=== PATIENT | female | born 1975 | race Caucasian/White ===

== ENCOUNTER 2017-10-06 18:27 | Observation (INO) | payer OTHER ==
[~2017-10-06] VITALS: Ht 160 cm; Wt 90.7 kg
[~2017-10-06 18:27] MED LIST: ALPR.25 MT; Atarax10 MG PO; BENTYL10 MG PO; BUSP5 PO; CHLO25 PO; CIPR500 PO; CODACE30 PO; Desyrel50 MG; FLUO10 PO; HYDACE5 PO; HYDR1TAB94 PO; IBUP600 PO; IBUP800 PO; Keflex500 MG PO; METPRE4DP PO; NAPR500 PO; NITR100CA PO; OMEP20ER PO; ONDA4 PO; ONDA4ODT MM; ONDA8 PO; OXYACE5T PO; PARO20 PO; PHENA100 PO; PROM25 PO; RANI150 PO; TRAM50 PO; TRAZ100 PO; TRAZ50 PO; Zofran Odt4 MG SL; Zofran Odt8 MG SL; [UNRECOGNIZED DRUG - OTHER]; [UNRECOGNIZED DRUG - REMARK]
[2017-10-06 19:46] LABS: BASOPHILS ABSOLUTE AUTO 0.04 K/mm3 (0.00-0.23); BASOPHILS PERCENT AUTO 1 % (0-2); EOSINOPHILS ABSOLUTE AUTO 0.13 K/mm3 (0.00-0.68); EOSINOPHILS PERCENT AUTO 2 % (0-6); Hematocrit 41.9 % (33.0-51.0); Hemoglobin 14.3 g/dL (11.5-16.0); IMMATURE GRAN ABSOLUTE AUTO 0.02 K/mm3 (0.00-0.10); IMMATURE GRAN PERCENT AUTO 0 % (0-1); LYMPHOCYTES ABSOLUTE AUTO 1.92 K/mm3 (0.84-5.20); LYMPHOCYTES PERCENT AUTO 25 % (21-46); MONOCYTES ABSOLUTE AUTO 0.51 K/mm3 (0.16-1.47); MONOCYTES PERCENT AUTO 7 % (4-13); Mean Corpuscular HGB 34.2 pg (26.0-34.0); Mean Corpuscular HGB Conc 34.1 g/dL (31.5-36.5); Mean Corpuscular Volume 100 fL (80-100); Mean Platelet Volume 9.4 fL (9.1-12.4); NEUTROPHILS PERCENT AUTO 66 % (41-73); Platelet Count 311 K/mm3 (150-400); RDW Standard Deviation 51.2 fL (35.1-46.3); Red Blood Cell Count 4.18 M/mm3 (3.80-5.20); White Blood Cell Count 7.72 K/mm3 (4.00-11.30)
[2017-10-06 20:08] LABS: Alanine Aminotransfer (ALT/SGP 72 U/L (12-78); Albumin, Blood 3.7 g/dL (3.4-5.0); Albumin/Globulin Ratio 0.8 (0.8-1.8); Alk Phos 123 U/L (50-136); Anion Gap 13 mmol/L (6-16); Aspartate Aminotrans (AST/SGOT 73 U/L (12-37); Bilirubin, Total 0.2 mg/dL (0.1-1.0); Blood Urea Nitrogen 6 mg/dL (8-24); Bun/Creatinine Ratio 9.2 (12.0-20.0); CO2, Blood 18 mmol/L (21-32); Calcium, Blood 8.2 mg/dL (8.5-10.1); Chloride, Blood 116 mmol/L (98-108); Creatinine, Blood 0.65 mg/dL (0.40-1.00); Globulin, Blood 4.4 g/dL (2.2-4.0); Glomerular Filtration Rate >60 (60-); Glucose, Blood 89 mg/dL (70-99); Potassium, Blood 3.7 mmol/L (3.5-5.5); Sodium, Blood 147 mmol/L (136-145); Total Protein, Blood 8.1 g/dL (6.4-8.2)
[2017-10-06 20:12] LABS: Thyroid Stimulating Hormone 0.932 uIU/mL (0.360-4.800)
[2017-10-06 20:21] LABS: Ethanol (Alcohol), Blood, Med 406 mg/dL
[2017-10-06 20:22] LABS: Acetaminophen, Random <2.0 ug/mL (10.0-30.0)
== END 2017-10-07 15:57 | disposition home or self-care (01) ==
LOC: ER 18:27 → EOR 18:28
PROVIDERS: Emergency Medicine
DX: F10.129 Alcohol abuse with intoxication, unspecified (principal); R45.851 Suicidal ideations; F17.200 Nicotine dependence, unspecified, uncomplicated; Z88.5 Allergy status to narcotic agent; Z88.8 Allergy status to other drugs, medicaments and biological substances; Y90.8 Blood alcohol level of 240 mg/100 ml or more
CPT/HCPCS: 80053; 84443; 85025; 96372; 99285; G0378; G0480; J1200; J1630; J2060

== ENCOUNTER 2017-10-12 18:33 | Emergency (ER) | payer OTHER ==
[~2017-10-12] VITALS: Ht 160 cm; Wt 90.7 kg
== END 2017-10-12 18:57 | disposition home or self-care (01) ==
LOC: ER 18:33
DX: F10.229 Alcohol dependence with intoxication, unspecified (principal); F41.9 Anxiety disorder, unspecified; F17.210 Nicotine dependence, cigarettes, uncomplicated
CPT/HCPCS: 99283

== ENCOUNTER 2017-10-13 14:50 | Emergency (ER) | payer OTHER ==
[~2017-10-13] VITALS: Ht 162.6 cm; Wt 90.7 kg
== END 2017-10-13 15:17 | disposition home or self-care (01) ==
LOC: ER 14:50
DX: F10.229 Alcohol dependence with intoxication, unspecified (principal); F41.9 Anxiety disorder, unspecified; F17.210 Nicotine dependence, cigarettes, uncomplicated
CPT/HCPCS: 99283

== ENCOUNTER 2019-02-22 15:16 | Emergency (ER) | payer OTHER ==
[~2019-02-22] VITALS: Ht 160 cm; Wt 87.1 kg
[2019-02-22] MEDS ORDERED: CLON.1 PO (15:50)
[2019-02-22] MEDS ORDERED: GABA100 PO (15:51)
[2019-02-22 15:52] LABS: BASOPHILS ABSOLUTE AUTO 0.02 K/mm3 (0.00-0.23); BASOPHILS PERCENT AUTO 0 % (0-2); EOSINOPHILS ABSOLUTE AUTO 0.32 K/mm3 (0.00-0.68); EOSINOPHILS PERCENT AUTO 5 % (0-6); Hematocrit 41.2 % (33.0-51.0); Hemoglobin 13.8 g/dL (11.5-16.0); IMMATURE GRAN ABSOLUTE AUTO 0.02 K/mm3 (0.00-0.10); IMMATURE GRAN PERCENT AUTO 0 % (0-1); LYMPHOCYTES ABSOLUTE AUTO 1.38 K/mm3 (0.84-5.20); LYMPHOCYTES PERCENT AUTO 20 % (21-46); MONOCYTES ABSOLUTE AUTO 0.36 K/mm3 (0.16-1.47); MONOCYTES PERCENT AUTO 5 % (4-13); Mean Corpuscular HGB 35.2 pg (26.0-34.0); Mean Corpuscular HGB Conc 33.5 g/dL (31.5-36.5); Mean Corpuscular Volume 105 fL (80-100); Mean Platelet Volume 9.6 fL (9.1-12.4); NEUTROPHILS ABSOLUTE AUTO 4.75 K/mm3 (1.96-9.15); NEUTROPHILS PERCENT AUTO 69 % (41-73); Platelet Count 258 K/mm3 (150-400); RDW Coefficient Variation 13.5 % (11.7-14.2); Red Blood Cell Count 3.92 M/mm3 (3.80-5.20); White Blood Cell Count 6.85 K/mm3 (4.00-11.30)
[2019-02-22 16:12] LABS: Source, Urine Clean Catch
[2019-02-22 16:19] LABS: Blood, Urine 1+ (Neg); Glucose Qualitative, Urine Neg (Neg); Ketones, Urine Neg (Neg); Leukocyte Esterase, Urine Neg (Neg); Nitrite, Urine Pos (Neg); Protein, Urine 2+ (Neg); Specific Gravity, Urine 1.015 (1.003-1.022); Urobilinogen, Urine 4+ (Normal)
[2019-02-22 16:29] LABS: Alanine Aminotransfer (ALT/SGP 23 U/L (12-78); Albumin, Blood 3.1 g/dL (3.4-5.0); Albumin/Globulin Ratio 0.7 (0.8-1.8); Alk Phos 93 U/L (50-136); Anion Gap 6 mmol/L (6-16); Aspartate Aminotrans (AST/SGOT 9 U/L (12-37); Bilirubin, Total 0.6 mg/dL (0.1-1.0); Blood Urea Nitrogen 11 mg/dL (8-24); Bun/Creatinine Ratio 17.5 (12.0-20.0); CO2, Blood 26 mmol/L (21-32); Calcium, Blood 8.6 mg/dL (8.5-10.1); Chloride, Blood 109 mmol/L (98-108); Creatinine, Blood 0.63 mg/dL (0.40-1.00); Globulin, Blood 4.3 g/dL (2.2-4.0); Glomerular Filtration Rate >60 (60-); Glucose, Blood 145 mg/dL (70-99); Potassium, Blood 3.8 mmol/L (3.5-5.5); Sodium, Blood 141 mmol/L (136-145); Total Protein, Blood 7.4 g/dL (6.4-8.2)
[2019-02-22 16:30] LABS: Bilirubin, Urine 3+ (Neg)
[2019-02-22 16:31] LABS: Appearance, Urine Cloudy (Clear); Color, Urine Orange (P-Yellow)
[2019-02-22 16:33] LABS: Bacteria Many /hpf; Squamous Epithelial Cells Many /hpf (Few)
[2019-02-22] MEDS ORDERED: CEPH500 PO (17:03)
[2019-02-22] MEDS ORDERED: Pyridium200 MG PO (17:03)
== END 2019-02-22 18:00 | disposition home or self-care (01) ==
LOC: ER 15:16
PROVIDERS: Physician Assistant
DX: N30.00 Acute cystitis without hematuria (principal); Z88.8 Allergy status to other drugs, medicaments and biological substances; Z88.5 Allergy status to narcotic agent; Z88.6 Allergy status to analgesic agent; Z79.899 Other long term (current) drug therapy; F17.210 Nicotine dependence, cigarettes, uncomplicated
CPT/HCPCS: 36415; 80053; 81001; 83690; 84703; 85025; 87086; 96374; 99283-25; J1885

== ENCOUNTER 2019-05-31 20:29 | Emergency (ER) | payer OTHER ==
[~2019-05-31] VITALS: Ht 160 cm; Wt 88.0 kg
[~2019-05-31 20:29] MED LIST changes: +CEPH500 PO; +CLON.1 PO; +GABA100 PO; +Pyridium200 MG PO
== END 2019-05-31 21:32 | disposition home or self-care (01) ==
LOC: ER 20:29
DX: T24.212A Burn of second degree of left thigh, initial encounter (principal); T31.0 Burns involving less than 10% of body surface; F17.210 Nicotine dependence, cigarettes, uncomplicated; Z88.6 Allergy status to analgesic agent; Z88.8 Allergy status to other drugs, medicaments and biological substances; Z79.899 Other long term (current) drug therapy; X16.XXXA Contact with hot heating appliances, radiators and pipes, initial encounter
CPT/HCPCS: 16020; 99283-25; A9270-GY

== ENCOUNTER 2020-11-27 22:15 | Emergency (ER) | payer OTHER ==
[~2020-11-27] VITALS: Ht 160 cm; Wt 99.8 kg
== END 2020-11-28 00:30 | disposition home or self-care (01) ==
LOC: ER 22:15
DX: S93.401A Sprain of unspecified ligament of right ankle, initial encounter (principal); F17.210 Nicotine dependence, cigarettes, uncomplicated; Z88.2 Allergy status to sulfonamides; Z88.5 Allergy status to narcotic agent; Z88.6 Allergy status to analgesic agent; Z79.899 Other long term (current) drug therapy; W10.9XXA Fall (on) (from) unspecified stairs and steps, initial encounter
CPT/HCPCS: 29515; 73610; 99283-25; L1906

== ENCOUNTER → 2022-09-18 | Outpatient (CLI) | payer OTHER ==
[2022-09-20 04:06] LABS: CHLAMYDIA TRACHOMATIS, NAA Negative (Negative)
== END | disposition home or self-care (01) ==
LOC: LAB SHORT 16:56
PROVIDERS: Nurse Practitioner Family
DX: Z11.3 Encounter for screening for infections with a predominantly sexual mode of transmission (principal)
CPT/HCPCS: 87491; 87591

== ENCOUNTER → 2023-03-24 | Outpatient (CLI) | payer OTHER ==
[2023-03-24 17:25] LABS: BASOPHILS ABSOLUTE AUTO 0.03 K/mm3 (0.00-0.23); BASOPHILS PERCENT AUTO 0 % (0-2); EOSINOPHILS ABSOLUTE AUTO 0.11 K/mm3 (0.00-0.68); EOSINOPHILS PERCENT AUTO 1 % (0-6); Hematocrit 42.2 % (33.0-51.0); Hemoglobin 15.3 g/dL (11.5-16.0); IMMATURE GRAN ABSOLUTE AUTO 0.03 K/mm3 (0.00-0.10); IMMATURE GRAN PERCENT AUTO 0 % (0-1); LYMPHOCYTES ABSOLUTE AUTO 1.58 K/mm3 (0.84-5.20); LYMPHOCYTES PERCENT AUTO 18 % (21-46); MONOCYTES ABSOLUTE AUTO 0.57 K/mm3 (0.16-1.47); MONOCYTES PERCENT AUTO 7 % (4-13); Mean Corpuscular HGB 39.2 pg (26.0-34.0); Mean Corpuscular HGB Conc 36.3 g/dL (31.5-36.5); Mean Corpuscular Volume 108 fL (80-100); Mean Platelet Volume 10.1 fL (9.1-12.4); NEUTROPHILS ABSOLUTE AUTO 6.47 K/mm3 (1.96-9.15); NEUTROPHILS PERCENT AUTO 74 % (41-73); Platelet Count 215 K/mm3 (150-400); RDW Coefficient Variation 13.3 % (11.7-14.2); RDW Standard Deviation 53.3 fL (35.1-46.3); White Blood Cell Count 8.79 K/mm3 (4.00-11.30)
[2023-03-24 17:39] LABS: Albumin, Blood 3.6 g/dL (3.4-5.0); Albumin/Globulin Ratio 0.7 (0.8-1.8); Bilirubin, Total 1.4 mg/dL (0.1-1.0); Bun/Creatinine Ratio 24.6 (12.0-20.0); Calcium, Blood 9.6 mg/dL (8.5-10.1); Creatinine, Blood 1.34 mg/dL (0.40-1.00); Globulin, Blood 5.3 g/dL (2.2-4.0); Potassium, Blood 2.9 mmol/L (3.5-5.5); Total Protein, Blood 8.9 g/dL (6.4-8.2)
== END ==
LOC: LAB SHORT 15:00 → LAB 15:00
PROVIDERS: Family Medicine
DX: N12 Tubulo-interstitial nephritis, not specified as acute or chronic (principal)
CPT/HCPCS: 80053; 85025; 87077; 87086; 87186

== ENCOUNTER → 2023-06-23 | Outpatient (CLI) | payer OTHER ==
[2023-06-25 17:36] LABS: APTIMA MEDIA TYPE Urine; C. TRACHOMATIS BY TMA Negative (Negative); N. GONORRHOEAE BY TMA Negative (Negative); SPECIMEN SOURCE Urine
== END ==
LOC: LAB SHORT 13:53 → LAB 13:53
PROVIDERS: Advanced Practice Midwife
DX: Z11.3 Encounter for screening for infections with a predominantly sexual mode of transmission (principal)
CPT/HCPCS: 87491; 87591

== ENCOUNTER 2024-02-05 23:06 | Inpatient (IN) | payer OTHER ==
[~2024-02-05] VITALS: Ht 160 cm; Wt 83.6 kg
[~2024-02-05 23:06] MED LIST changes: -Atarax10 MG PO; -GABA100 PO; +GABA300 PO; +HYDPAM25 PO
[2024-02-05 23:45] LABS: BASOPHILS ABSOLUTE AUTO 0.04 K/mm3 (0.00-0.23); BASOPHILS PERCENT AUTO 0 % (0-2); EOSINOPHILS ABSOLUTE AUTO 0.01 K/mm3 (0.00-0.68); EOSINOPHILS PERCENT AUTO 0 % (0-6); Hematocrit 36.2 % (33.0-51.0); Hemoglobin 12.8 g/dL (11.5-16.0); IMMATURE GRAN ABSOLUTE AUTO 0.03 K/mm3 (0.00-0.10); IMMATURE GRAN PERCENT AUTO 0 % (0-1); LYMPHOCYTES ABSOLUTE AUTO 1.12 K/mm3 (0.84-5.20); LYMPHOCYTES PERCENT AUTO 13 % (21-46); MONOCYTES ABSOLUTE AUTO 0.67 K/mm3 (0.16-1.47); MONOCYTES PERCENT AUTO 8 % (4-13); Mean Corpuscular HGB 35.6 pg (26.0-34.0); Mean Corpuscular HGB Conc 35.4 g/dL (31.5-36.5); Mean Corpuscular Volume 101 fL (80-100); Mean Platelet Volume 9.7 fL (9.1-12.4); NEUTROPHILS ABSOLUTE AUTO 7.06 K/mm3 (1.96-9.15); NEUTROPHILS PERCENT AUTO 79 % (41-73); Platelet Count 293 K/mm3 (150-400); RDW Coefficient Variation 14.7 % (11.7-14.2); RDW Standard Deviation 54.4 fL (35.1-46.3); White Blood Cell Count 8.93 K/mm3 (4.00-11.30)
[2024-02-05] MEDS ORDERED: Thiamine HCl 100 MG in NS 50 ML IV ONE (23:45)
[2024-02-05] MEDS ORDERED: NS 1,000 ML IV SCH (23:50)
[2024-02-05] MEDS ORDERED: LORazepam 2 MG/ML 1ML Injection IV ONE (23:50)
[2024-02-05] MEDS ORDERED: Ondansetron HCl 2 MG / ML 2ML Vial IV ONE (23:50)
[2024-02-06 00:05] LABS: Ethanol (Alcohol), Blood, Med <3 mg/dL
[2024-02-06 00:10] LABS: Alanine Aminotransfer (ALT/SGP 113 U/L (12-78); Albumin, Blood 3.1 g/dL (3.4-5.0); Albumin/Globulin Ratio 0.7 (0.8-1.8); Alk Phos 237 U/L (50-136); Anion Gap 21 mmol/L (3-11); Aspartate Aminotrans (AST/SGOT 240 U/L (12-37); Bilirubin, Total 1.5 mg/dL (0.1-1.0); Blood Urea Nitrogen 9 mg/dL (8-24); Bun/Creatinine Ratio 11.5 (12.0-20.0); CO2, Blood 20 mmol/L (21-32); Calcium, Blood 8.8 mg/dL (8.5-10.1); Chloride, Blood 102 mmol/L (98-108); Creatinine, Blood 0.78 mg/dL (0.40-1.00); Globulin, Blood 4.5 g/dL (2.2-4.0); Glomerular Filtration Rate 94 (60-); Glucose, Blood 135 mg/dL (70-99); Magnesium, Blood 0.7 mg/dL (1.6-2.4); Phosphorus, Blood 3.1 mg/dL (2.5-4.9); Potassium, Blood 3.9 mmol/L (3.5-5.5); Sodium, Blood 139 mmol/L (136-145); Total Protein, Blood 7.6 g/dL (6.4-8.2)
[2024-02-06] MEDS ORDERED: Magnesium Sulf 2 GM/Water 50ML 50 ML IV ONE ×2 (00:15→02:30)
[2024-02-06] MEDS ORDERED: PROZAC2010 PO (03:24)
[2024-02-06] MEDS ORDERED: OMEP20ER PO (03:24)
[2024-02-06] MEDS ORDERED: Cyclobenzaprine5 MG PO (03:24)
[2024-02-06] MEDS ORDERED: EUTHYROX25 MC1 PO (03:25)
[2024-02-06] MEDS ORDERED: Naltrexone HCl50 MG PO (03:32)
[2024-02-06] MEDS ORDERED: LORazepam 1 MG Tab PO PRN (03:50)
[2024-02-06] MEDS ORDERED: LORazepam 2 MG/ML 1ML Injection IV PRN ×2 (03:50→03:55)
[2024-02-06] MEDS ORDERED: ChlordiazePOXIDE 25 MG Cap PO PRN ×2 (03:50→03:55)
[2024-02-06] MEDS ORDERED: IBUP800 PO (04:59)
[2024-02-06] MEDS ORDERED: ANORO ELLIPTA1 EAC1 INH (05:10)
[2024-02-06 05:12] VITALS: BP 130/117
[2024-02-06] MEDS ORDERED: HYDROCHLOROTH12.5 MG PO (05:12)
[2024-02-06] MEDS ORDERED: ONDA8 PO (05:13)
[2024-02-06] MEDS ORDERED: Ondansetron HCl 2 MG / ML 2ML Vial IV PRN (05:40)
[2024-02-06] MEDS ORDERED: Ipratropium/Albuterol SulF 2.5-0.5MG/3 ML Amp INH SCH (05:45)
[2024-02-06] MEDS ORDERED: Cyclobenzaprine HCl 10 MG Tab PO PRN (05:45)
[2024-02-06] MEDS ORDERED: HydrOXYzine Pamoate 25 MG Cap PO PRN (05:45)
[2024-02-06] MEDS ORDERED: Gabapentin 300 MG Cap PO SCH (06:00)
[2024-02-06] MEDS ORDERED: Ipratropium/Albuterol SulF 2.5-0.5MG/3 ML Amp INH PRN (06:00)
[2024-02-06 07:15] LABS: Albumin, Blood 2.7 g/dL (3.4-5.0); Albumin/Globulin Ratio 0.7 (0.8-1.8); Bilirubin, Total 1.4 mg/dL (0.1-1.0); Bun/Creatinine Ratio 12.2 (12.0-20.0); Calcium, Blood 7.8 mg/dL (8.5-10.1); Creatinine, Blood 0.74 mg/dL (0.40-1.00); Globulin, Blood 3.9 g/dL (2.2-4.0); Magnesium, Blood 2.4 mg/dL (1.6-2.4); Potassium, Blood 3.1 mmol/L (3.5-5.5); Total Protein, Blood 6.6 g/dL (6.4-8.2)
[2024-02-06] MEDS ORDERED: Omeprazole 20 MG CapCR PO SCH (07:30)
[2024-02-06 07:33] VITALS: BP 124/91
[2024-02-06] MEDS ORDERED: NS 250 ML IV PRN (07:35)
[2024-02-06] MEDS ORDERED: Potassium Chloride 20 MEQ TabCR PO SCH (08:00)
--- NOTE | 2024-02-06 08:45 | NUR ---
SHIFT SUMMARY: MARTA IS A&OX4. VSS, NO ACUTE EVENTS SINCE ADMISSION, MAINTAINING SATS ORA. PT WAS MEDICATED PER MAR BASE ON CIWA SCORE. PT WAS HESITANT TO TAKE THE LIBRIUM AT FIRST, STATING THAT SHE HAS HAD SOME DIFFICULTY TOLERATING MEDICATIONS IN THE PAST. PT DID TOLERATE THE MEDICATIONS WITHOUT DIFFICULTY. PT REPORTS STRESS INCONTINENCE WHEN SHE COUGHS, MADONNA UNDERWEAR AND PAD PROVIDED. IV TO LEFT AC PATENT. SHE IS A STANDBY ASSIST TO THE BATHROOM D/T WEAKNESS AND MEDICATIONS. SHE REPORTS SHE HAS NOT EATEN FOR FOUR DAYS AND THAT THE LONGEST SHE HAS GONE WITHOUT EATING WAS TEN DAYS, WHICH LEFT HER FEELING FATIGUED AND LETHARGIC. SHE DENIES ANY DIFFICULTY WITH ELIMINATION. SHE STATES THAT SHE HAS BEEN NAUSEATED AND VOMITING FOR QUITE A WHILE AND HAS LOST APPROXIMATELY TWENTY POUNDS. SHE IS LYING IN BED WITH THE CALL LIGHT IN REACH. REPORT WAS GIVEN TO DAY SHIFT RN.
[2024-02-06] MEDS ORDERED: FLUoxetine HCL 20 MG CAP PO SCH (09:00)
[2024-02-06] MEDS ORDERED: HydroCHLOROthiazide 25 mg Tab PO SCH (09:00)
[2024-02-06] MEDS ORDERED: Folic Acid 1 MG in NS 50 ML IV SCH ×2 (09:00)
[2024-02-06] MEDS ORDERED: Thiamine HCl 100 MG in NS 50 ML IV SCH (09:00)
[2024-02-06] MEDS ORDERED: Enoxaparin 40 MG/0.4 ML SYR SC SCH (09:00)
[2024-02-06 15:03] VITALS: BP 125/89
[2024-02-06] MEDS ORDERED: NS 1,000 ML IV SCH (15:35)
--- NOTE | 2024-02-06 17:00 | NUR ---
SHIFT SUMMARY PT HAS BEEN PLEASENT TODAY. MOST RECENT CIWA SCORE WAS 6. HAS BEEN MEDICATED PER EMAR THROUGHOUT SHIFT FOR SX. REMAINS A&OX4. VSS. COMPLAINING OF MILD NEAUSIA THIS AM BUT RESOLVING THIS AFTERNOON. PT DESCRIBES A "TINGLING FEELING" ON HER LOWER LEGS AND IN HER HAIR LINE. PT HAS BEEN SLEEPY TODAY, EASILY AROUSED BY VOICE. PT HAD DARK BROWN URINE, NOTIFIED DR ABOUT THIS FINDING AND WAS PRESCRIBED NS TO HELP HYDRATE HER. BLADDER SCAN READ 0 AFTER VOIDING. WATER AT BEDSIDE, EDUCATED PT ABOUT THE NEED TO DRINK WATER.
[2024-02-06] MEDS ORDERED: Magnesium Oxide 400 MG Tab PO SCH (21:00)
[2024-02-06] MEDS ORDERED: CloNIDine 0.1 MG Tab PO SCH (21:00)
[2024-02-07 03:05] VITALS: BP 109/75
[2024-02-07 05:15] LABS: Albumin, Blood 2.3 g/dL (3.4-5.0); Albumin/Globulin Ratio 0.7 (0.8-1.8); Bilirubin, Total 1.2 mg/dL (0.1-1.0); Bun/Creatinine Ratio 10.4 (12.0-20.0); Calcium, Blood 7.4 mg/dL (8.5-10.1); Creatinine, Blood 0.77 mg/dL (0.40-1.00); Globulin, Blood 3.5 g/dL (2.2-4.0); Potassium, Blood 3.6 mmol/L (3.5-5.5); Total Protein, Blood 5.8 g/dL (6.4-8.2)
--- NOTE | 2024-02-07 05:37 | NUR ---
SHIFT SUMMARY NOC PT A/O X 4. PLEASANT AND COOPERATIVE WITH CARE. VSS. CIWA 4 AND 3. PT HAVING TREMORS AND MILD ANXIETY ABOUT SPINAL MRI SCHEDULED FOR OUTPATIENT @ 0700 TODAY THAT PT WILL HAVE TO CANCEL BECAUSE THEY WERE NOT EXPECTING TO BE ADMITTED TO HOSPITAL. PT REPORTS THAT THIS IS IMPORTANT TO THEM DUE TO INCREASING PAIN. PT STATES THAT IF POSSIBLE THEY WOULD LIKE TO HAVE MRI PERFORMED WHILE THEY ARE ALREADY IN HOSPITAL. INFUSIN OF NS @ 100 ML/HR RUNNING. ON TELE SINUS RHYTHM IN 70'S. PT PO INTAKE HAS BEEN BETTER AND PT HAS VOIDED X 3 SO FAR DURING SHIFT. PT CURRENTLY RESTING WITH BED IN LOWEST POSITION, AND CALL LIGHT WITHIN REACH.
[2024-02-07 07:29] VITALS: BP 120/85
[2024-02-07 14:09] VITALS: BP 106/76
--- NOTE | 2024-02-07 17:44 | NUR ---
SHIFT SUMMARY: PT A/O X4. PLEASANT AND COOPERATIVE WITH CARE. ONE CIWA COMPLETED THIS SHIFT WITH A SCORE OF 3. NO ATIVAN OR LIBRIUM NEEDED THIS SHIFT. PT C/O LOWER BACK PAIN ONCE. PRN FLEXERIL PROVIDED. PT SCHEDULED FOR OUTPT CT OF LUMBAR SPINE AT [address] NOGUERA AND ORDERED IMAGING FOR INPATIENT. CT COMPLETED THIS AM. NS INFUSING @100/HR. CONT BIOX IN PLACE. TELE IN PLACE RUNNING SINUS RHYHTM IN 'S. CALL LIGHT IN REACH. BED IN LOWEST POSITION.
[2024-02-08 02:32] VITALS: BP 105/64
[2024-02-08 05:53] LABS: BASOPHILS ABSOLUTE AUTO 0.01 K/mm3 (0.00-0.23); BASOPHILS PERCENT AUTO 0 % (0-2); EOSINOPHILS ABSOLUTE AUTO 0.14 K/mm3 (0.00-0.68); EOSINOPHILS PERCENT AUTO 3 % (0-6); Hematocrit 28.5 % (33.0-51.0); Hemoglobin 9.7 g/dL (11.5-16.0); IMMATURE GRAN ABSOLUTE AUTO 0.01 K/mm3 (0.00-0.10); IMMATURE GRAN PERCENT AUTO 0 % (0-1); LYMPHOCYTES ABSOLUTE AUTO 1.01 K/mm3 (0.84-5.20); LYMPHOCYTES PERCENT AUTO 22 % (21-46); MONOCYTES PERCENT AUTO 9 % (4-13); Mean Corpuscular HGB 36.2 pg (26.0-34.0); Mean Platelet Volume 9.5 fL (9.1-12.4); NEUTROPHILS ABSOLUTE AUTO 2.96 K/mm3 (1.96-9.15); NEUTROPHILS PERCENT AUTO 65 % (41-73); Platelet Count 142 K/mm3 (150-400); RDW Standard Deviation 58.3 fL (35.1-46.3); Red Blood Cell Count 2.68 M/mm3 (3.80-5.20); White Blood Cell Count 4.53 K/mm3 (4.00-11.30)
--- NOTE | 2024-02-08 05:57 | NUR ---
SHIFT SUMMARY: Pt is admitted for ETOH withdrawal and is a full code. Is alert and able to make needs known. Stated that she did have some cramp/ spasm type pain that was treated with PRN muscle relaxers. Tell reports sinus in the 80s.
[2024-02-08 06:01] LABS: Mean Corpuscular Volume 106 fL (80-100)
[2024-02-08 06:47] LABS: Albumin/Globulin Ratio 0.7 (0.8-1.8); Bun/Creatinine Ratio 9.4 (12.0-20.0); Calcium, Blood 7.5 mg/dL (8.5-10.1); Creatinine, Blood 0.75 mg/dL (0.40-1.00); Potassium, Blood 3.5 mmol/L (3.5-5.5)
[2024-02-08 07:46] VITALS: BP 102/73
[2024-02-08] MEDS ORDERED: MULVITA PO (08:31)
--- NOTE | 2024-02-08 10:56 | NUR ---
DISCHARGE: PT D/C @1050 VIA WHEELCHAIR WITH NIECE. IV REMOVED W/O COMPLICATIONS. TELE SENT BACK. ONLY NEW MEDICATION WAS MULTIPVITAMIN. PT STATES SHE IS WITHOUT A PHONE RIGHT NOW. PT STATES SHE WILL CALL CLINIC FOR FOLLOW-UP APPOINTMENT. NO QUESTIONS AT TIME OF D/C.
== END 2024-02-08 10:51 | disposition home or self-care (01) | DRG 897 ==
LOC: ER 23:06 → MEDS 02-06 03:46
PROVIDERS: Emergency Medicine; Internal Medicine; ADMIT Family Medicine
PROC: HZ2ZZZZ Detoxification Services for Substance Abuse Treatment (ICD-10-PCS; principal; 2024-02-06)
DX: F10.239 Alcohol dependence with withdrawal, unspecified (principal); E83.42 Hypomagnesemia; E87.6 Hypokalemia; K70.10 Alcoholic hepatitis without ascites; F32.A Depression, unspecified; F41.9 Anxiety disorder, unspecified; Z71.51 Drug abuse counseling and surveillance of drug abuser; Z90.49 Acquired absence of other specified parts of digestive tract; Y90.0 Blood alcohol level of less than 20 mg/100 ml; F17.210 Nicotine dependence, cigarettes, uncomplicated; Z98.890 Other specified postprocedural states; Z88.6 Allergy status to analgesic agent; Z88.8 Allergy status to other drugs, medicaments and biological substances; Z79.899 Other long term (current) drug therapy; Z79.890 Hormone replacement therapy; Z87.440 Personal history of urinary (tract) infections
CPT/HCPCS: 36415; 72131; 80053; 80320; 82607; 82746; 83690; 83735; 84100; 85025; 94760; 94762; 96361; 96365; 96366; 96367; 96368; 96375; 99285; A9270; J1650; J2060; J2405; J3411; J3475; J7030; J7050; Q0177

== ENCOUNTER → 2024-03-21 | Outpatient (CLI) | payer OTHER ==
[~2024-03-21] MED LIST changes: +ANORO ELLIPTA1 EAC1 INH; +Cyclobenzaprine5 MG PO; +EUTHYROX25 MC1 PO; +HYDROCHLOROTH12.5 MG PO; +MULVITA PO; +Naltrexone HCl50 MG PO; +PROZAC2010 PO
[2024-03-21 16:30] LABS: BASOPHILS ABSOLUTE AUTO 0.03 K/mm3 (0.00-0.23); BASOPHILS PERCENT AUTO 1 % (0-2); EOSINOPHILS ABSOLUTE AUTO 0.38 K/mm3 (0.00-0.68); EOSINOPHILS PERCENT AUTO 7 % (0-6); Hematocrit 33.4 % (33.0-51.0); Hemoglobin 11.1 g/dL (11.5-16.0); IMMATURE GRAN ABSOLUTE AUTO 0.01 K/mm3 (0.00-0.10); IMMATURE GRAN PERCENT AUTO 0 % (0-1); LYMPHOCYTES ABSOLUTE AUTO 1.69 K/mm3 (0.84-5.20); LYMPHOCYTES PERCENT AUTO 29 % (21-46); MONOCYTES ABSOLUTE AUTO 0.37 K/mm3 (0.16-1.47); MONOCYTES PERCENT AUTO 6 % (4-13); Mean Corpuscular HGB 32.9 pg (26.0-34.0); Mean Corpuscular HGB Conc 33.2 g/dL (31.5-36.5); Mean Corpuscular Volume 99 fL (80-100); Mean Platelet Volume 9.5 fL (9.1-12.4); NEUTROPHILS PERCENT AUTO 57 % (41-73); Platelet Count 313 K/mm3 (150-400); RDW Coefficient Variation 13.2 % (11.7-14.2); RDW Standard Deviation 48.5 fL (35.1-46.3); Red Blood Cell Count 3.37 M/mm3 (3.80-5.20); White Blood Cell Count 5.78 K/mm3 (4.00-11.30)
[2024-03-21 16:36] LABS: Albumin, Blood 3.1 g/dL (3.4-5.0); Albumin/Globulin Ratio 0.8 (0.8-1.8); Bilirubin, Total 0.4 mg/dL (0.1-1.0); Bun/Creatinine Ratio 15.6 (12.0-20.0); Calcium, Blood 9.1 mg/dL (8.5-10.1); Creatinine, Blood 0.9 mg/dL (0.40-1.00); Globulin, Blood 3.9 g/dL (2.2-4.0); Potassium, Blood 3.9 mmol/L (3.5-5.5)
[2024-03-21 18:49] LABS: Percent Saturation 10.5 % (15.0-50.0)
== END | disposition home or self-care (01) ==
LOC: LAB 15:30 → LAB SHORT 15:30
PROVIDERS: Physician Assistant
DX: D64.9 Anemia, unspecified (principal)
CPT/HCPCS: 36415; 80053; 82728; 83540; 83550; 85025

== ENCOUNTER 2025-01-10 18:09 | Emergency (ER) | payer OTHER ==
[~2025-01-10] VITALS: Ht 160 cm; Wt 83.9 kg
[2025-01-10 18:41] VITALS: BP 148/84
[2025-01-10] MEDS ORDERED: Ketorolac Tromethamine 15mg Vial IV ONE (19:15)
[2025-01-10 20:07] LABS: BASOPHILS ABSOLUTE AUTO 0.04 K/mm3 (0.00-0.23); BASOPHILS PERCENT AUTO 1 % (0-2); EOSINOPHILS ABSOLUTE AUTO 0.06 K/mm3 (0.00-0.68); EOSINOPHILS PERCENT AUTO 1 % (0-6); Hematocrit 37.0 % (33.0-51.0); Hemoglobin 13.0 g/dL (11.5-16.0); IMMATURE GRAN ABSOLUTE AUTO 0.04 K/mm3 (0.00-0.10); IMMATURE GRAN PERCENT AUTO 1 % (0-1); LYMPHOCYTES ABSOLUTE AUTO 1.25 K/mm3 (0.84-5.20); LYMPHOCYTES PERCENT AUTO 23 % (21-46); MONOCYTES ABSOLUTE AUTO 0.30 K/mm3 (0.16-1.47); MONOCYTES PERCENT AUTO 6 % (4-13); Mean Corpuscular HGB Conc 35.1 g/dL (31.5-36.5); Mean Corpuscular Volume 104 fL (80-100); NEUTROPHILS ABSOLUTE AUTO 3.71 K/mm3 (1.96-9.15); NEUTROPHILS PERCENT AUTO 69 % (41-73); NRBC ABSOLUTE 0.00 K/mm3 (0.00-0.02); NRBC Auto 0.0 /100 WBC (0.0-0.2); RDW Coefficient Variation 14.4 % (11.7-14.2); RDW Standard Deviation 54.7 fL (35.1-46.3)
[2025-01-10 20:10] LABS: Platelet Count 225 K/mm3 (150-400)
[2025-01-10 20:11] LABS: Alanine Aminotransfer (ALT/SGP 84.0 U/L (12-78); Albumin, Blood 3.1 g/dL (3.4-5.0); Albumin/Globulin Ratio 0.6 (0.8-1.8); Anion Gap 17.0 mmol/L (3-11); Aspartate Aminotrans (AST/SGOT 239.0 U/L (12-37); Bilirubin, Total 1.0 mg/dL (0.1-1.0); Blood Urea Nitrogen 9.0 mg/dL (8-24); CO2, Blood 19.0 mmol/L (21-32); Calcium, Blood 8.8 mg/dL (8.5-10.1); Chloride, Blood 105.0 mmol/L (98-108); Creatinine, Blood 0.54 mg/dL (0.40-1.00); Ethanol (Alcohol), Blood, Med 225.0 mg/dL; Globulin, Blood 4.8 g/dL (2.2-4.0); Glucose, Blood 71.0 mg/dL (70-99); Potassium, Blood 3.6 mmol/L (3.5-5.5); Sodium, Blood 137.0 mmol/L (136-145); Total Protein, Blood 7.9 g/dL (6.4-8.2)
[2025-01-10] MEDS ORDERED: RX Prepack 2 Tabs Ondansetron ODT 4MG UD ONE (20:50)
[2025-01-10] MEDS ORDERED: ONDA4ODT MM (20:51)
== END 2025-01-10 21:14 | disposition home or self-care (01) ==
LOC: ER 18:09
PROVIDERS: Emergency Medicine
DX: M51.26 Other intervertebral disc displacement, lumbar region (principal); M51.360 Other intervertebral disc degeneration, lumbar region with discogenic back pain only; F10.10 Alcohol abuse, uncomplicated; Y90.7 Blood alcohol level of 200-239 mg/100 ml; I10 Essential (primary) hypertension; F17.210 Nicotine dependence, cigarettes, uncomplicated; Z88.6 Allergy status to analgesic agent; Z88.5 Allergy status to narcotic agent; Z79.899 Other long term (current) drug therapy
CPT/HCPCS: 80053; 80320; 85025; 96374; 99284-25; A9270; J1885

== ENCOUNTER 2025-02-08 14:01 | Inpatient (IN) | payer OTHER ==
[~2025-02-08] VITALS: Ht 160 cm; Wt 79.7 kg
[~2025-02-08 14:01] MED LIST changes: -CREON DR 12,001 EACH PO; -Percocet 5-3251 EACH PO
[2025-02-08 14:49] LABS: BASOPHILS ABSOLUTE AUTO 0.01 K/mm3 (0.00-0.23); BASOPHILS PERCENT AUTO 0 % (0-2); EOSINOPHILS ABSOLUTE AUTO 0.04 K/mm3 (0.00-0.68); EOSINOPHILS PERCENT AUTO 1 % (0-6); Hematocrit 33.6 % (33.0-51.0); Hemoglobin 11.9 g/dL (11.5-16.0); IMMATURE GRAN ABSOLUTE AUTO 0.01 K/mm3 (0.00-0.10); IMMATURE GRAN PERCENT AUTO 0 % (0-1); LYMPHOCYTES ABSOLUTE AUTO 0.66 K/mm3 (0.84-5.20); LYMPHOCYTES PERCENT AUTO 14 % (21-46); MONOCYTES ABSOLUTE AUTO 0.51 K/mm3 (0.16-1.47); MONOCYTES PERCENT AUTO 11 % (4-13); Mean Corpuscular HGB Conc 35.4 g/dL (31.5-36.5); Mean Corpuscular Volume 103 fL (80-100); NEUTROPHILS ABSOLUTE AUTO 3.50 K/mm3 (1.96-9.15); NEUTROPHILS PERCENT AUTO 74 % (41-73); NRBC ABSOLUTE 0.00 K/mm3 (0.00-0.02); NRBC Auto 0.0 /100 WBC (0.0-0.2); Platelet Count 88 K/mm3 (150-400); RDW Coefficient Variation 13.0 % (11.7-14.2); RDW Standard Deviation 50.1 fL (35.1-46.3)
[2025-02-08 15:06] LABS: Alanine Aminotransfer (ALT/SGP 79 U/L (12-78); Albumin, Blood 3.8 g/dL (3.4-5.0); Albumin/Globulin Ratio 0.9 (0.8-1.8); Anion Gap 20 mmol/L (3-11); Aspartate Aminotrans (AST/SGOT 226 U/L (12-37); Bilirubin, Total 2.6 mg/dL (0.1-1.0); Blood Urea Nitrogen 24 mg/dL (8-24); CO2, Blood 19 mmol/L (21-32); Calcium, Blood 10.4 mg/dL (8.5-10.1); Chloride, Blood 94 mmol/L (98-108); Creatinine, Blood 0.97 mg/dL (0.40-1.00); Ethanol (Alcohol), Blood, Med <3 mg/dL; Globulin, Blood 4.1 g/dL (2.2-4.0); Glucose, Blood 95 mg/dL (70-99); Potassium, Blood 2.6 mmol/L (3.5-5.5); Sodium, Blood 130 mmol/L (136-145); Total Protein, Blood 7.9 g/dL (6.4-8.2)
[2025-02-08] MEDS ORDERED: Ketorolac Tromethamine 15mg Vial IV ONE (15:30)
[2025-02-08] MEDS ORDERED: FentaNYL Citrate 50 MCG/ML 2 ML Injection IV ONE (15:30)
[2025-02-08] MEDS ORDERED: Morphine Sulfate 4 MG/1 ML Injection IV ONE (17:05)
[2025-02-08] MEDS ORDERED: Ondansetron HCl 2 MG / ML 2ML Vial IV PRN (18:20)
[2025-02-08] MEDS ORDERED: Metoclopramide HCl 5MG / ML 2ML Vial IV PRN (18:25)
[2025-02-08] MEDS ORDERED: FentaNYL Citrate 50 MCG/ML 2 ML Injection IV PRN (18:25)
[2025-02-08] MEDS ORDERED: Albuterol 2.5 MG/3 ML VIAL INH PRN (18:25)
[2025-02-08 19:51] LABS: Source, Urine Clean Catch
[2025-02-08 19:54] LABS: Color, Urine Yellow (P-Yellow); Glucose Qualitative, Urine Neg (Neg); Ketones, Urine 4+ (Neg); Leukocyte Esterase, Urine 3+ (Neg); Protein, Urine 2+ (Neg); Specific Gravity, Urine 1.010 (1.003-1.022); Urobilinogen, Urine 2+ (Normal)
[2025-02-08 20:01] LABS: Bilirubin, Urine 1+ (Neg)
[2025-02-08 20:02] LABS: Red Blood Cells, Urine 0-2 /hpf (0-2)
[2025-02-08 20:40] LABS: pH Blood Venous 7.28 (7.34-7.37)
--- NOTE | 2025-02-08 20:59 | NUR ---
TOOK REPORT ELLA HANKS @ 2054.
[2025-02-08 21:17] VITALS: BP 120/88
[2025-02-09] VITALS (7 sets, daily range): BP systolic 102–119; BP diastolic 65–74
[2025-02-09] MEDS ORDERED: LORazepam 2 MG/ML 1ML Injection IV ONE (00:15)
[2025-02-09] MEDS ORDERED: Magnesium Sulf 2 GM/Water 50ML 50 ML IV ONE (00:25)
[2025-02-09] MEDS ORDERED: NS 250 ML IV PRN (00:35)
--- NOTE | 2025-02-09 03:57 | NUR ---
SHIFT SUMMARY NOC PT A/O X 4. PLEASANT AND COOPERATIVE WITH CARE. VSS. ADMIT FROM ED WITH PANCREATITIS. PT PAIN AND N/V BEING MANAGED PER EMAR. PT IS NPO WITH ICE CHIPS AND IS TOLERATING THEM WELL. PT ABLE TO AMBULATE TO BATHROOM WITH SBA. PT REPORTS LAST DRINK OVER A WEEK AGO, AND STATES THAT THEY WERE DRINKING 1/5 OF WHISKEY DAILY. PT RECEIVED POTASSIUM AND MAGNESIUM REPLACEMNNTS CMP STILL PENDING. IN TELE NSR IN S. LR INFUSING @ 125 ML/HR. PT HAD C/O OF ANXIETY AND GIVEN ONE TIME DOSE ATIVAN IV 0.5 MG. DURING ADMIT ASSESSMENT PT REPORTS UNSTABLE LIVING SITUATION AND UNRELIABLE TRANSPORTATION VEHCILE HAS BEEN STOLEN A FEW TIMES THIS YEAR. PT IS RECEPTIVE TO DISCUSSING RESOURCES WITH CARE MANAGMENT TODAY. PT CURRENTLY RESTING WITH BED IN LOWEST POSITION, AND CALL LIGHT WITHIN REACH.
[2025-02-09 05:04] LABS: Hematocrit 31.4 % (33.0-51.0); Hemoglobin 11.0 g/dL (11.5-16.0); Mean Corpuscular HGB Conc 35.0 g/dL (31.5-36.5); Mean Corpuscular Volume 105 fL (80-100); NRBC ABSOLUTE 0.00 K/mm3 (0.00-0.02); NRBC Auto 0.0 /100 WBC (0.0-0.2); Platelet Count 77 K/mm3 (150-400); RDW Coefficient Variation 13.1 % (11.7-14.2); RDW Standard Deviation 50.8 fL (35.1-46.3)
[2025-02-09 05:24] LABS: Alanine Aminotransfer (ALT/SGP 62.0 U/L (12-78); Albumin, Blood 3.3 g/dL (3.4-5.0); Albumin/Globulin Ratio 0.9 (0.8-1.8); Anion Gap 18.0 mmol/L (3-11); Aspartate Aminotrans (AST/SGOT 180.0 U/L (12-37); Bilirubin, Total 2.5 mg/dL (0.1-1.0); Blood Urea Nitrogen 19.0 mg/dL (8-24); CO2, Blood 17.0 mmol/L (21-32); Calcium, Blood 9.9 mg/dL (8.5-10.1); Chloride, Blood 99.0 mmol/L (98-108); Creatinine, Blood 0.73 mg/dL (0.40-1.00); Globulin, Blood 3.6 g/dL (2.2-4.0); Glucose, Blood 71.0 mg/dL (70-99); Magnesium, Blood 2.4 mg/dL (1.6-2.4); Potassium, Blood 2.6 mmol/L (3.5-5.5); Sodium, Blood 131.0 mmol/L (136-145); Total Protein, Blood 6.9 g/dL (6.4-8.2)
--- NOTE | 2025-02-09 05:44 | NUR ---
PT POTASSIUM 2.6 THIS AM AFTER RECEIVING 80 MEQ IV KCL AFTER ADMIT. HOSPITALIST NOTIFIED AND ORDER FOR 60 MEQ IV KCL X 1 ORDERED.
[2025-02-09] MEDS ORDERED: Potassium Chloride 60 MEQ IV SCH (05:45)
[2025-02-09] MEDS ORDERED: Potassium Chl 20MEQ/Water100ML 100 ML IV SCH (05:53)
[2025-02-09] MEDS ORDERED: Enoxaparin 40 MG/0.4 ML SYR SC SCH (09:00)
--- NOTE | 2025-02-09 16:39 | NUR ---
SHIFT SUMMARY: PATIENT WAS ABLE TO ADVANCE HER DIET TODAY; SO FAR JUST CLEAR LIQUIDS AT THIS TIME, BUT SEEMS TO BE TOLERATING. NO VOMITING, BUT WILL REPORT NAUSEA AND PAIN; MEDICATING NEEDED. PATIENT'S POTASSIUM REPLACED TODAY, LR STILL GOING AT 125ML/HR, NO EVENTS ON TELE. PATIENT IN BED, ALERT, CALL LIGHT WITHIN REACH, NO SIGNS OR SYMPTOMS OF DISTRESS, PLAN OF CARE ONGOING.
[2025-02-09] MEDS ORDERED: Pantoprazole Sodium 40 MG Injection IV SCH (21:00)
[2025-02-10 04:31] VITALS: BP 100/65
[2025-02-10 04:39] LABS: BASOPHILS ABSOLUTE AUTO 0.02 K/mm3 (0.00-0.23); BASOPHILS PERCENT AUTO 1 % (0-2); EOSINOPHILS ABSOLUTE AUTO 0.12 K/mm3 (0.00-0.68); EOSINOPHILS PERCENT AUTO 4 % (0-6); Hematocrit 29.3 % (33.0-51.0); Hemoglobin 10.5 g/dL (11.5-16.0); IMMATURE GRAN ABSOLUTE AUTO 0.00 K/mm3 (0.00-0.10); IMMATURE GRAN PERCENT AUTO 0 % (0-1); LYMPHOCYTES ABSOLUTE AUTO 0.86 K/mm3 (0.84-5.20); LYMPHOCYTES PERCENT AUTO 29 % (21-46); MONOCYTES ABSOLUTE AUTO 0.37 K/mm3 (0.16-1.47); MONOCYTES PERCENT AUTO 13 % (4-13); Mean Corpuscular HGB Conc 35.8 g/dL (31.5-36.5); Mean Corpuscular Volume 103 fL (80-100); NEUTROPHILS ABSOLUTE AUTO 1.58 K/mm3 (1.96-9.15); NEUTROPHILS PERCENT AUTO 54 % (41-73); NRBC ABSOLUTE 0.00 K/mm3 (0.00-0.02); NRBC Auto 0.0 /100 WBC (0.0-0.2); Platelet Count 88 K/mm3 (150-400); RDW Coefficient Variation 13.2 % (11.7-14.2); RDW Standard Deviation 49.7 fL (35.1-46.3)
[2025-02-10 05:02] LABS: Alanine Aminotransfer (ALT/SGP 57.0 U/L (12-78); Albumin, Blood 3.1 g/dL (3.4-5.0); Albumin/Globulin Ratio 0.9 (0.8-1.8); Anion Gap 9.0 mmol/L (3-11); Aspartate Aminotrans (AST/SGOT 168.0 U/L (12-37); Bilirubin, Total 1.5 mg/dL (0.1-1.0); Blood Urea Nitrogen 10.0 mg/dL (8-24); CO2, Blood 25.0 mmol/L (21-32); Calcium, Blood 9.0 mg/dL (8.5-10.1); Chloride, Blood 101.0 mmol/L (98-108); Creatinine, Blood 0.65 mg/dL (0.40-1.00); Globulin, Blood 3.3 g/dL (2.2-4.0); Glucose, Blood 119.0 mg/dL (70-99); Potassium, Blood 2.8 mmol/L (3.5-5.5); Sodium, Blood 132.0 mmol/L (136-145); Total Protein, Blood 6.4 g/dL (6.4-8.2)
--- NOTE | 2025-02-10 05:13 | NUR ---
PT A&O X4, VS WNL, TELE NSR IN 90'S. PT WITH MODERATE PAIN, MEDICATED WITH FENTENYL X2. UP TO BR INDEPENDENTLY, SMAL HARD BM, NEEDS STOOL SOFTNER. LABS IMPROVING. REMAINS ON IVF, AND EATING SMALL AMTS OF SOLIDS, PO INTAKE MODERATE. PLAN TO RETURN HOME.
[2025-02-10] MEDS ORDERED: Polyethylene Glycol 3350 17 gm PO ONE (07:00)
[2025-02-10] MEDS ORDERED: Polyethylene Glycol 3350 17 gm PO PRN (07:00)
[2025-02-10 07:13] VITALS: BP 105/73
[2025-02-10] MEDS ORDERED: Potassium Chl 20MEQ/Water100ML 100 ML IV SCH (07:30)
[2025-02-10] MEDS ORDERED: Magnesium Sulf 2 GM/Water 50ML 50 ML IV STA (09:40)
[2025-02-10 11:31] VITALS: BP 100/65
[2025-02-10 15:29] VITALS: BP 103/74
[2025-02-10] MEDS ORDERED: FentaNYL Citrate 50 MCG/ML 2 ML Injection IV PRN (16:54)
--- NOTE | 2025-02-10 17:30 | NUR ---
SHIFT SUMMARY: NO EVENTS OR CHANGES WITH THE PATIENT THROUGHOUT THE SHIFT. NO EVENTS ON TELE. PATIENT TOLERATING DIET AT THIS TIME AND ORAL MEDS. PATIENT IN BED, ALERT, CALL LIGHT WITHIN REACH, NO SIGNS OR SYMPTOMS OF DISTRESS, PLAN OF CARE ONGOING.
[2025-02-10 19:33] VITALS: BP 114/76
[2025-02-11] VITALS (7 sets, daily range): BP systolic 98–119; BP diastolic 47–91
--- NOTE | 2025-02-11 04:26 | NUR ---
PT A&O AX4, VS WNL, PO IMPROVING. DENIED NAUSEA, PAIN IN ABDOMEN MEDICATED WITH OXYCODONE X1, AND BENEDRYL FOR PURITIS. PT TELE NSR IN 80'S. REMAINS ON IVF, PT CONCERNED ABOUT HOME MEDS, WILL CHECK WITH MD ON DAYS TO REORDER. PLAN TO D/C HOME ONCE TOLERATING PO INTAKE.
[2025-02-11 04:54] LABS: BASOPHILS ABSOLUTE AUTO 0.02 K/mm3 (0.00-0.23); BASOPHILS PERCENT AUTO 1 % (0-2); EOSINOPHILS ABSOLUTE AUTO 0.12 K/mm3 (0.00-0.68); EOSINOPHILS PERCENT AUTO 4 % (0-6); Hematocrit 31.0 % (33.0-51.0); Hemoglobin 10.9 g/dL (11.5-16.0); IMMATURE GRAN ABSOLUTE AUTO 0.01 K/mm3 (0.00-0.10); IMMATURE GRAN PERCENT AUTO 0 % (0-1); LYMPHOCYTES ABSOLUTE AUTO 1.09 K/mm3 (0.84-5.20); LYMPHOCYTES PERCENT AUTO 37 % (21-46); MONOCYTES ABSOLUTE AUTO 0.37 K/mm3 (0.16-1.47); MONOCYTES PERCENT AUTO 13 % (4-13); Mean Corpuscular HGB Conc 35.2 g/dL (31.5-36.5); Mean Corpuscular Volume 106 fL (80-100); NEUTROPHILS ABSOLUTE AUTO 1.33 K/mm3 (1.96-9.15); NEUTROPHILS PERCENT AUTO 45 % (41-73); NRBC ABSOLUTE 0.00 K/mm3 (0.00-0.02); NRBC Auto 0.0 /100 WBC (0.0-0.2); RDW Coefficient Variation 13.4 % (11.7-14.2); RDW Standard Deviation 51.7 fL (35.1-46.3)
[2025-02-11 04:55] LABS: Platelet Count 68 K/mm3 (150-400)
[2025-02-11 05:09] LABS: Alanine Aminotransfer (ALT/SGP 49.0 U/L (12-78); Albumin, Blood 3.0 g/dL (3.4-5.0); Albumin/Globulin Ratio 0.9 (0.8-1.8); Anion Gap 9.0 mmol/L (3-11); Aspartate Aminotrans (AST/SGOT 123.0 U/L (12-37); Bilirubin, Total 1.2 mg/dL (0.1-1.0); Blood Urea Nitrogen 7.0 mg/dL (8-24); CO2, Blood 25.0 mmol/L (21-32); Calcium, Blood 8.6 mg/dL (8.5-10.1); Chloride, Blood 100.0 mmol/L (98-108); Creatinine, Blood 0.64 mg/dL (0.40-1.00); Globulin, Blood 3.3 g/dL (2.2-4.0); Glucose, Blood 88.0 mg/dL (70-99); Magnesium, Blood 1.8 mg/dL (1.6-2.4); Potassium, Blood 3.0 mmol/L (3.5-5.5); Sodium, Blood 131.0 mmol/L (136-145); Total Protein, Blood 6.3 g/dL (6.4-8.2)
[2025-02-11 05:46] LABS: pH Blood Venous 7.32 (7.34-7.37)
[2025-02-11] MEDS ORDERED: Potassium Chl 20MEQ/Water100ML 100 ML IV SCH (07:10)
[2025-02-11] MEDS ORDERED: Potassium Chl 20MEQ/Water100ML 100 ML IV STA (07:25)
[2025-02-11 08:09] LABS: Phosphorus, Blood 0.2 mg/dL (2.5-4.9)
[2025-02-11] MEDS ORDERED: Potassium Phosphate Dibasic 30 MM in Dextrose 5% 500 ML IV STA (08:25)
[2025-02-11] MEDS ORDERED: Folic Acid 1 MG TAB PO SCH (09:00)
[2025-02-11] MEDS ORDERED: Amylase/Lipase/Protease DR Cap 12,000 PO SCH (12:30)
--- NOTE | 2025-02-11 13:36 | NUR ---
PATIENT ALERT AND ORIENTED. ABLE TO MAKE NEEDS KNOWN. UP WITH SBA TO BATHROOM TO HELP MANAGE IV POLE. INTERMIT ABDOMINAL PAIN. ON ROOM AIR. VITAL SIGNS STABLE. TELE SHOWING SR WITH HR 80'S. DENIES CHEST PAIN/PRESSURE/PALPITATIONS. IV FLUIDS INFUSING PER EMAR. POTASSIUM PHOSPHATE REPLACED. TOLERATING PO DIET. EDUCATED ON LOW FIBER DIET. SHOWER COMPLETED THIS AM. SKIN C/D/I. DR. DAWN TO BEDSIDE THIS AM AND THIS RN PRESENT. PLAN FOR LAB RECHECK LATER THIS AFTERNOON. CALL LIGHT IN REACH.
[2025-02-11 16:24] LABS: Albumin, Blood 2.9 g/dL (3.4-5.0); Anion Gap 6 mmol/L (3-11); Blood Urea Nitrogen 7 mg/dL (8-24); CO2, Blood 29 mmol/L (21-32); Calcium, Blood 8.7 mg/dL (8.5-10.1); Chloride, Blood 101 mmol/L (98-108); Creatinine, Blood 0.62 mg/dL (0.40-1.00); Glucose, Blood 101 mg/dL (70-99); Magnesium, Blood 1.6 mg/dL (1.6-2.4); Phosphorus, Blood 1.3 mg/dL (2.5-4.9); Potassium, Blood 4.3 mmol/L (3.5-5.5); Sodium, Blood 132 mmol/L (136-145)
--- NOTE | 2025-02-11 16:36 | NUR ---
CALL PLACED TO DR. DAWN TO UPDATE ON LAB RESULTS. DR. DAWN TO PLACE ORDERS.
[2025-02-11] MEDS ORDERED: Magnesium Sul 4 GM/Water100 ML 100 ML IV ONE (17:30)
[2025-02-11] MEDS ORDERED: Sodium Phosphate 15 MM in Dextrose 5% 500 ML IV SCH (23:00)
[2025-02-12 05:33] VITALS: BP 84/60
--- NOTE | 2025-02-12 05:39 | NUR ---
PT A&O X4, B/P RUNNING LOW THIS SHIFT, HELD CATAPRESS. PT UP INDEPENDENTLY, PO INTAKE FAIR, REMAINS ON IVF, RESUMED PO MEDS. PLAN TO D/C HOME.
[2025-02-12 07:19] VITALS: BP 104/71
--- NOTE | 2025-02-12 07:35 | NUR ---
ASSUMPTION OF CARE: THIS RN ASSUMED CARE OF PATIENT. AWAKE DURING SHIFT CHANGE REPORT. SITTING UP IN CHAIR. BREATHING EVEN AND UNLABORED c ROOM AIR. AWAITING AM TELE STRIP TO REVIEW. PROVIDED c VASELINE FOR C/O CHAFING IN GROIN. MAG RUNNING @ 125mL/hr. BED IN LOWEST POSITION. CALL LIGHT WITHIN REACH. ACUTE NEEDS MET.
[2025-02-12 11:19] LABS: BASOPHILS ABSOLUTE AUTO 0.01 K/mm3 (0.00-0.23); BASOPHILS PERCENT AUTO 0 % (0-2); EOSINOPHILS ABSOLUTE AUTO 0.11 K/mm3 (0.00-0.68); EOSINOPHILS PERCENT AUTO 4 % (0-6); Hematocrit 27.8 % (33.0-51.0); Hemoglobin 9.5 g/dL (11.5-16.0); IMMATURE GRAN ABSOLUTE AUTO 0.01 K/mm3 (0.00-0.10); IMMATURE GRAN PERCENT AUTO 0 % (0-1); LYMPHOCYTES ABSOLUTE AUTO 0.79 K/mm3 (0.84-5.20); LYMPHOCYTES PERCENT AUTO 28 % (21-46); MONOCYTES ABSOLUTE AUTO 0.49 K/mm3 (0.16-1.47); MONOCYTES PERCENT AUTO 18 % (4-13); Mean Corpuscular HGB Conc 34.2 g/dL (31.5-36.5); Mean Corpuscular Volume 108 fL (80-100); NEUTROPHILS ABSOLUTE AUTO 1.39 K/mm3 (1.96-9.15); NEUTROPHILS PERCENT AUTO 50 % (41-73); NRBC ABSOLUTE 0.00 K/mm3 (0.00-0.02); NRBC Auto 0.0 /100 WBC (0.0-0.2); Platelet Count 114 K/mm3 (150-400); RDW Coefficient Variation 13.8 % (11.7-14.2); RDW Standard Deviation 55.4 fL (35.1-46.3)
[2025-02-12 11:37] LABS: Albumin, Blood 2.7 g/dL (3.4-5.0); Anion Gap 10 mmol/L (3-11); Blood Urea Nitrogen 4 mg/dL (8-24); CO2, Blood 26 mmol/L (21-32); Calcium, Blood 8.3 mg/dL (8.5-10.1); Chloride, Blood 103 mmol/L (98-108); Creatinine, Blood 0.62 mg/dL (0.40-1.00); Glucose, Blood 108 mg/dL (70-99); Magnesium, Blood 2.1 mg/dL (1.6-2.4); Phosphorus, Blood 1.2 mg/dL (2.5-4.9); Potassium, Blood 3.2 mmol/L (3.5-5.5); Sodium, Blood 136 mmol/L (136-145)
[2025-02-12] MEDS ORDERED: CREON DR 12,001 EACH PO (13:17)
[2025-02-12] MEDS ORDERED: Percocet 5-3251 EACH PO (13:18)
[2025-02-12] MEDS ORDERED: ONDA4 PO (13:18)
[2025-02-12 14:20] VITALS: BP 101/76
--- NOTE | 2025-02-12 14:31 | NUR ---
DISCHARGE SUMMARY: A&Ox4. PLEASANT AND COOPERATIVE WITH CARE. CALLS APPROPRIATELY AND IS ABLE TO ADVOCATE NEEDS EFFECTIVELY. AMBULATES INDEPENDENTLY. CONTINENT OF BOWEL AND BLADDER; LBM TODAY. MEDS WHOLE c FLUIDS. TELE SINUS IN s. PAIN MANAGED c PO MEDS. ELECTROLYTES AND FLUIDS REPLACED. PATIENT PROVIDED WITH COPY OF DISCHARGE PLAN AND MEDICATION LIST. MED REC [facility]. INSTRUCTED TO FOLLOW-UP WITH PCP AT [facility] TOMORROW. ALL QUESTIONS ANSWERED TO DISCHARGING NURSE'S ABILITY AND PATIENT VOICED UNDERSTANDING OF DISCHARGE PLAN. IV REMOVED AND PRESSURE DRESSING PLACED. LEFT FLOOR WITH ALL BELONGINGS AND DISCHARGE PACKET, ESCORTED BY [facility]. TRANSPORTATION PROVIDED BY NEIGHBOR/FRIEND VIA POV.
== END 2025-02-12 14:39 | disposition home or self-care (01) | DRG 439 ==
LOC: ER 14:01 → MEDS 18:19
PROVIDERS: Nurse Practitioner Acute Care; Physician Assistant; ADMIT Student in an Organized Health Care Education/Training Program
DX: K85.20 Alcohol induced acute pancreatitis without necrosis or infection (principal); E87.1 Hypo-osmolality and hyponatremia; E87.20 Acidosis, unspecified; F10.288 Alcohol dependence with other alcohol-induced disorder; K70.10 Alcoholic hepatitis without ascites; K59.00 Constipation, unspecified; K21.9 Gastro-esophageal reflux disease without esophagitis; I10 Essential (primary) hypertension; E83.51 Hypocalcemia; K76.0 Fatty (change of) liver, not elsewhere classified; E87.6 Hypokalemia; E83.39 Other disorders of phosphorus metabolism; E83.52 Hypercalcemia; F17.210 Nicotine dependence, cigarettes, uncomplicated; R94.31 Abnormal electrocardiogram [ECG] [EKG]; F41.9 Anxiety disorder, unspecified; F32.A Depression, unspecified; R10.9 Unspecified abdominal pain; Z90.49 Acquired absence of other specified parts of digestive tract; Z88.5 Allergy status to narcotic agent; Z88.6 Allergy status to analgesic agent; Z79.899 Other long term (current) drug therapy
CPT/HCPCS: 36415; 74018; 74177; 76705; 80053; 80069; 80320; 81001; 82803; 83605; 83615; 83690; 83735; 84100; 84703; 85025; 85027; 87077; 87086; 87186; 93005; 93010; 94640; 94664; 94760; 96374-59; 96375; 99285-25; A9270; J1650; J1885; J2060; J2270; J2405; J2470; J3010; J3411; J3475; J3480; J7050; J7060; J7120; Q9967

== ENCOUNTER → 2025-02-08 | Outpatient (CLI) | payer OTHER ==
[~2025-02-08] MED LIST changes: +CREON DR 12,001 EACH PO; +Percocet 5-3251 EACH PO
[2025-02-08 12:56] LABS: BASOPHILS ABSOLUTE AUTO 0.01 K/mm3 (0.00-0.23); BASOPHILS PERCENT AUTO 0 % (0-2); EOSINOPHILS ABSOLUTE AUTO 0.05 K/mm3 (0.00-0.68); EOSINOPHILS PERCENT AUTO 1 % (0-6); Hematocrit 36.5 % (33.0-51.0); Hemoglobin 12.9 g/dL (11.5-16.0); IMMATURE GRAN ABSOLUTE AUTO 0.01 K/mm3 (0.00-0.10); IMMATURE GRAN PERCENT AUTO 0 % (0-1); LYMPHOCYTES ABSOLUTE AUTO 0.88 K/mm3 (0.84-5.20); LYMPHOCYTES PERCENT AUTO 16 % (21-46); MONOCYTES ABSOLUTE AUTO 0.55 K/mm3 (0.16-1.47); MONOCYTES PERCENT AUTO 10 % (4-13); Mean Corpuscular HGB Conc 35.3 g/dL (31.5-36.5); Mean Corpuscular Volume 101 fL (80-100); NEUTROPHILS ABSOLUTE AUTO 3.96 K/mm3 (1.96-9.15); NEUTROPHILS PERCENT AUTO 73 % (41-73); NRBC ABSOLUTE 0.00 K/mm3 (0.00-0.02); NRBC Auto 0.0 /100 WBC (0.0-0.2); Platelet Count 106 K/mm3 (150-400); RDW Coefficient Variation 12.6 % (11.7-14.2); RDW Standard Deviation 47.2 fL (35.1-46.3)
[2025-02-08 13:02] LABS: Alanine Aminotransfer (ALT/SGP 91.0 U/L (12-78); Albumin, Blood 4.2 g/dL (3.4-5.0); Albumin/Globulin Ratio 0.9 (0.8-1.8); Anion Gap 29.0 mmol/L (6-16); Aspartate Aminotrans (AST/SGOT 232.0 U/L (12-37); Bilirubin, Total 2.9 mg/dL (0.1-1.0); Blood Urea Nitrogen 23.0 mg/dL (8-24); CO2, Blood 16.0 mmol/L (21-32); Calcium, Blood 11.0 mg/dL (8.5-10.1); Chloride, Blood 89.0 mmol/L (98-108); Creatinine, Blood 1.59 mg/dL (0.40-1.00); Globulin, Blood 4.7 g/dL (2.2-4.0); Glucose, Blood 101.0 mg/dL (70-99); Potassium, Blood 2.8 mmol/L (3.5-5.5); Sodium, Blood 131.0 mmol/L (136-145); Total Protein, Blood 8.9 g/dL (6.4-8.2)
== END | disposition home or self-care (01) ==
LOC: LAB SHORT 12:45 → LAB 12:45
PROVIDERS: Family Medicine
DX: R10.9 Unspecified abdominal pain (principal)
CPT/HCPCS: 80053; 83690; 85025

== ENCOUNTER → 2025-05-28 | Outpatient (CLI) | payer OTHER ==
[~2025-05-28] MED LIST changes: +CREON DR 12,001 EACH PO; +Percocet 5-3251 EACH PO
[2025-05-30 13:33] LABS: FAT, FECAL - NEUTRAL Normal (Normal); FAT, FECAL - SPLIT Normal (Normal)
== END ==
LOC: LAB 11:52 → LAB SHORT 11:52
DX: K86.0 Alcohol-induced chronic pancreatitis (principal)
CPT/HCPCS: 82705